=== PATIENT | male | born 1960 | race Caucasian/White ===

== ENCOUNTER 2017-11-18 14:08 | Emergency (ER) | payer OTHER ==
[2017-11-18 14:26] VITALS: BMI 31.6
[2017-11-18] MEDS ORDERED: ONDANSETRON 4 MG/2 ML VIAL IVPB ONE (15:02)
[2017-11-18] MEDS ORDERED: MAG HYDROX/AL HYDROX/SIMETH 30 ML UNIT-DOSE CUP PO ONE (15:02)
[2017-11-18] MEDS ORDERED: SODIUM CHLORIDE 1,000 ML IV STA (15:02)
[2017-11-18] MEDS ORDERED: FAMOTIDINE 20 MG/50 ML IVPB 20 MG/50 ML MG IVPB ONE ×2 (15:02→15:56)
[2017-11-18] MEDS ORDERED: ACETAMINOPHEN 1000 MG/100 ML VIAL (NON FORMULARY) IVPB ONE (15:03)
--- NOTE | 2017-11-18 15:12 | PDOC ---
History of Present Illness - General Chief Complaint: Nausea/Vomiting Stated Complaint: PAIN/VOMITTING Time Seen by Provider: 11/18/17 14:53 - History of Present Illness Initial Comments: 11/18/17 15:10 The patient is a 57 year old male with no significant past medical history who presents to the Emergency department with mid epigastric pain for 9 hours. The patient describes his pain and constant and non-radiating. He reports associated vomiting (3 episodes) and diarrhea (1 episode). He states that he took omeprazole, tylenol, and pepto bismol to try an alleviate symptoms with no relief. He notes that he did not eat anything this morning. Pt also endorses subjective fevers. Denies recent travel or sick contacts. No prior surgical history. Denies h/o peptic ulcers/gastritis. no h/o gallstones. Past History - Past Medical History Allergies/Adverse Reactions: Allergies Allergy/AdvReac Type Severity Reaction Status Date / Time No Known Allergies Allergy Verified 11/18/17 14:26 Home Medications: Ambulatory Orders NK [No Known Home Medication] 11/18/17 COPD: No - Suicide/Smoking/Psychosocial Hx Smoking History: Never smoked Review of Systems - Review of Systems Comments:: 11/18/17 15:11 "GENERAL/CONSTITUTIONAL: + fever, No weakness. HEAD, EYES, EARS, NOSE AND THROAT: No change in vision. No ear pain or discharge. No sore throat. CARDIOVASCULAR: No chest pain or shortness of breath. RESPIRATORY: No cough, wheezing, or hemoptysis. GASTROINTESTINAL: +epigastric pain +N/V +diarrhea, no constipation. GENITOURINARY: No dysuria, frequency, or change in urination. MUSCULOSKELETAL: No joint or muscle swelling or pain. No neck or back pain. SKIN: No rash NEUROLOGIC: No headache, vertigo, loss of consciousness, or change in strength/ sensation. ENDOCRINE: No increased thirst. No abnormal weight change. HEMATOLOGIC/LYMPHATIC: No anemia, easy bleeding, or history of blood clots. ALLERGIC/IMMUNOLOGIC: No hives or skin allergy. " *Physical Exam - Vital Signs Last Vital Signs Temp Pulse Resp BP Pulse Ox 100.5 F H 117 H 20 127/76 99 11/18/17 14:24 11/18/17 14:24 11/18/17 14:24 11/18/17 14:24 11/18/17 14:24 - Physical Exam Comments: 11/18/17 15:16 "GENERAL: Awake, alert, and fully oriented, in no acute distress HEAD: No signs of trauma EYES: PERRLA, EOMI, sclera anicteric, conjunctiva clear ENT: Auricles normal inspection, hearing grossly normal, nares patent, oropharynx clear without exudates. Moist mucosa NECK: Nontender, no stepoffs, Normal ROM, supple, no lymphadenopathy, JVD, or masses LUNGS: Breath sounds equal, clear to auscultation bilaterally. No wheezes, and no crackles HEART: Regular rate and rhythm, normal S1 and S2, no murmurs, rubs or gallops ABDOMEN: +epigastric TTP, normoactive bowel sounds. No guarding, no rebound. No masses EXTREMITIES: Normal range of motion, no edema. No clubbing or cyanosis. No cords, erythema, or tenderness NEUROLOGICAL: Cranial nerves II through XII intact. 5/5 strength and sensation in all extremities, Normal speech, normal gait SKIN: Warm, Dry, normal turgor, no rashes or lesions noted. " ED Treatment Course - LABORATORY CBC & Chemistry Diagram: 11/18/17 15:30 11/18/17 15:30 - RADIOLOGY Radiology Studies Ordered: Category Date Time Status ABDOMEN US -LIMITED [US] Stat Ultrasound 11/18/17 15:03 Ordered Medical Decision Making - Medical Decision Making 11/18/17 15:17 57 M with epigastric pain + N/V/D, with fever 100.5 in ER. Possible viral gastroenteritis. Also consider pancreatitis vs cholecystitis. - Labs - RUQ sono - IVF, zofran, tylenol 11/18/17 17:26 labs unremarkable. RUQ sono negative for christofer. Pt reassessed s/p meds and IVF. Now tolerating PO. VItals now normal (HR 90). Pt is well appearing, with normal vitals. Clinically stable for DC at this time. I discussed the physical exam findings, ancillary test results and final diagnoses with the patient. I answered all of the patient's questions. The patient was satisfied with the care received and felt comfortable with the discharge plan and treatment plan. The patient agrees to follow up with the primary care physician within 24-72 hours. *DC/Admit/Observation/Transfer Diagnosis at time of Disposition: Gastroenteritis - Discharge Dispostion Disposition: HOME - Referrals Referrals: ON STAFF,NOT [Primary Care Provider] - Melecio Sweet MD [Staff Physician] - - Patient Instructions Printed Discharge Instructions: DI for Viral Gastroenteritis -- Adult Additional Instructions: You likely have a viral infection causing your vomiting and diarrhea. Drink plenty of fluids and take tylenol as needed for fevers. If you experience worsening pain, vomiting, fevers, or any other concerning symptoms, return to the ER immediately. Otherwise, follow up with your primary doctor within 1 week. You need a referral to a GI doctor for further evaluation of your abdominal pain. You can call the number provided to make an appointment with our GI clinic. Print Language: NEPALI - Post Discharge Activity - Attestations Physician Attestion: 11/18/17 17:31 I, Dr. Stanislav Ochoa MD, attest that this document has been prepared under my direction and personally reviewed by me in its entirety. I further attest, that it accurately reflects all work, treatment, procedures and medical decision -making performed by me.
[2017-11-18 15:37] LABS: BASO % 0.7 % (0-2.0); EOS % 0.3 % (0-4.5); HEMATOCRIT 47.9 % (35.4-49); HEMOGLOBIN 16.3 GM/dL (11.7-16.9); LYMPH % 3.5 % (8-40); MCH 29.4 pg (25.7-33.7); MCHC 34.1 g/dl (32.0-35.9); MEAN CELL VOLUME 86.1 fl (80-96); MEAN PLT VOLUME 8.9 fl (7.5-11.1); MONO % 3.8 % (3.8-10.2); NEUT % 91.7 % (42.8-82.8); PLATELET COUNT 140 K/MM3 (134-434); RBC 5.56 M/mm3 (4.00-5.60); RDW 14.9 % (11.9-15.9); WHITE BLOOD COUNT 8.7 K/mm3 (4.0-10.0)
[2017-11-18 15:54] LABS: ALBUMIN 3.8 g/dl (3.4-5.0); ANION GAP 5 (8-16); BILIRUBIN,TOTAL 0.6 mg/dL (0.2-1.0); BLOOD UREA NITROGEN 14 mg/dL (7-18); CALCIUM 7.6 mg/dL (8.5-10.1); CHLORIDE 106 mmol/L (98-107); CO2 28 mmol/L (21-32); GLUCOSE,RANDOM 111 mg/dL (74-106); POTASSIUM 3.8 mmol/L (3.5-5.1); SGOT/AST 21 U/L (15-37); SGPT/ALT 57 U/L (12-78); SODIUM 139 mmol/L (136-145)
[2017-11-18] MEDS ORDERED: MAG HYDROX/AL HYDROX/SIMETH 30 ML UNIT-DOSE CUP ONE (15:56)
[2017-11-18] MEDS ORDERED: ONDANSETRON 4 MG/2 ML VIAL ONE (15:56)
[2017-11-18] MEDS ORDERED: ACETAMINOPHEN INJECTION 100 ML IVPB ONE (15:56)
[2017-11-18 15:57] LABS: LIPASE 324 U/L (73-393)
[2017-11-18 15:58] LABS: ALK PHOS 78 U/L (45-117); TOT PROT 6.7 g/dl (6.4-8.2)
[2017-11-18 17:48] VITALS: BP 119/89; PULSE 89; TEMP 99.5
--- NOTE | 2017-11-19 23:26 | EKG ---
Test Reason : Blood Pressure : / mmHG Vent. Rate : 112 BPM Atrial Rate : 112 BPM P-R Int : 146 ms QRS Dur : 088 ms QT Int : 312 ms P-R-T Axes : 013 114 044 degrees QTc Int : 425 ms SINUS TACHYCARDIA POSSIBLE RIGHT VENTRICULAR HYPERTROPHY ABNORMAL ECG NO PREVIOUS ECGS AVAILABLE Confirmed by NEO BOWDEN MD ([id number]) on 11/19/2017 11:26:24 PM Referred By: Confirmed By:NEO BOWDEN MD
== END 2017-11-18 17:48 | disposition home or self-care (01) ==
LOC: JER 14:08 → EDBD 14:08 → JER 17:48
PROC: 3E033GC Introduction of Other Therapeutic Substance into Peripheral Vein, Percutaneous Approach (ICD-10-PCS; principal; 2017-11-18)
PROC: 3E033GC Introduction of Other Therapeutic Substance into Peripheral Vein, Percutaneous Approach (ICD-10-PCS; 2017-11-18)
PROC: 3E033NZ Introduction of Analgesics, Hypnotics, Sedatives into Peripheral Vein, Percutaneous Approach (ICD-10-PCS; 2017-11-18)
DX: A08.4 Viral intestinal infection, unspecified (principal); B97.89 Other viral agents as the cause of diseases classified elsewhere
CPT/HCPCS: 36415; 76705-TC; 80053; 82550; 83690; 84484; 85025; 93005; 93010; 99284-25